=== PATIENT | male | born 1970 | race Caucasian/White ===

== ENCOUNTER 2016-05-02 17:54 | Emergency (ER) | payer OTHER ==
[2016-05-02 18:08] VITALS: BP 150/98; PULSE 69; RESP 16; TEMP 97.7; O2SAT 95
[2016-05-02] MEDS ORDERED: PROPARACAINE 0.5% 15 ML OPHT DROP OP ONE (18:09)
--- NOTE | 2016-05-02 18:54 | UCPHY ---
H & P Time Seen by Provider: 05/02/16 18:28 Patient Type: Established HPI/ROS: Chief complaint: Feels like irritation left eye HPI: Two days ago he was working up on some scaffolding and there was a bit of breeze. He thought maybe something might have gotten in his eye however there is no distinct feeling that was the case. Nonetheless, he started having a sensation of irritation to the left eye. He continues to today. Does not work with metal on metal. He denies change in visual acuity. Of note, is that there is no matting this morning or discharge He has also had some mild URI symptoms which include runny of the nose as well as sneezing Smoking Status: Never smoked Physical Exam: General Appearance: Alert, no distress. Afebrile. Normal phonation. No respiratory distress. No photophobia Eyes: Pupils equal and round no pallor or injection. No icterus. Lids without changes. No ptosis. Mild erythema of bulbar and eyelid conjunctival surface without flare or limbal predominence. No spasm or pain with light. No preauricular nodes. There is no signs of corneal laceration or abrasion. No foreign bodies seen. Slit Lamp: Deep, clear quiet anterior chamber without cells or flare. No hyphema or hypopion. Fluorescein: No uptake - there is a small spot of discoloration to the cornea over the central axis but is not have uptake thereby this would suggest an old injury ENT, Mouth: Mucous membranes moist. Pharynx without erythema or exudate. Neck: No adenopathy. Supple. . Psych: Calm. Constitutional: Initial Vital Signs Temperature (C) 36.5 C 05/02/16 18:07 Heart Rate 69 05/02/16 18:07 Respiratory Rate 16 05/02/16 18:07 Blood Pressure 150/98 H 05/02/16 18:07 O2 Sat (%) 95 05/02/16 18:07 O2 Delivery Mode Room Air Allergies/Adverse Reactions: Penicillins Allergy (Unknown, Verified 05/02/16 18:08) Unknown Home Medications: Medication Instructions Recorded Lisinopril 11/16/14 Polymyxin B Sulf/Trimethoprim 10 ml OP Q4 #0 drops 05/02/16 [Polymyxin B-Tmp Eye Drops] Medical Decision Making Differential Diagnosis: Diagnostic considerations include, but are not limited to, the following: Conjunctivitis, blepharitis, foreign body, corneal ulcer, iritis There is no signs of corneal injury on this case. Thereby I do not think he got something in his eye the other day when he was working in the [employer]. There is symptoms of a URI such as sneezing and runny nose thereby I suspect doing with adenovirus even though there is no pre-auricular node. I see no indication for antibiotic drops this time though he will have a prescription in case become secondarily infected with any gloppy discharge. - Data Points Medications Given: Discontinued Medications Proparacaine HCl (Alcaine 0.5%) 2 drops OP EDNOW ONE Stop: 05/02/16 18:10 Last Admin: 05/02/16 18:12 Dose: 2 drop Departure - Departure Disposition: Home, Routine, Self-Care Clinical Impression: Viral conjunctivitis of left eye Condition: Good Instructions: Conjunctivitis (ED) Additional Instructions: In the mornings, if the eyes are stock shock use a warm compress As your contagious avoid close contact others, cough into elbow if you need to clear your throat If the discharge begins in the eye and the character of the drainage in the left eye becomes particularly thick and running down you cheek then start the drops Referrals: Jered Vasquez MD [Primary Care Provider] - As per Instructions Prescriptions: Polymyxin B Sulf/Trimethoprim [Polymyxin B-Tmp Eye Drops] 10 ml OP Q4 #0 drops - PQRS PQRS Measurement: Not applicable
== END 2016-05-02 19:04 | disposition home or self-care (01) ==
LOC: CED 17:54
DX: B30.9 Viral conjunctivitis, unspecified (principal)
CPT/HCPCS: 99214-PO; G0463-PO